=== PATIENT | female | born 1940 | race Caucasian/White ===

== ENCOUNTER 2019-03-14 07:47 | Observation (INO) ==
--- NOTE | 2019-03-14 07:59 | Emergency Department Note ---
Disposition Clinical Impression: TIA (transient ischemic attack) Disposition: Admitted As Inpatient Time of Disposition: 10:41 General Adult HPI - General Chief complaint: ED General Medical Stated complaint: confused, sweating Time Seen by Provider: 03/14/19 07:59 Source: patient, family Mode of arrival: private vehicle Limitations: no limitations Nursing Notes Reviewed: Yes Vital Signs Reviewed: Yes - History of Present Illness HPI Narrative: 78-year-old white female presents emergency department with her daughter and granddaughter who helps with the history. Apparently this morning the patient woke up confused. Her daughter describes her as having a panic attack and sweating all over. According to her daughter she has had a stroke 3 months ago and she wakes up in the morning and she is usually dizzy. She was dizzy this morning and apparently was confused. She had this episode where she did not recognize people and really did not know where she was or what was going on for about 20 minutes. This has resolved and the patient is awake and acting appropriately at the present time. She denies any pain. She has no new weakness. She has residual left-sided upper extremity weakness from her stroke in November. She denies headache. She is oriented to person, place and situation, but not to the month or year. She appears to be back at her baseline. Pain Scale: 0 - Related Data Home Medications Medication Instructions Recorded Confirmed Docusate Sodium [Stool Softener] 100 mg PO DAILY PRN 12/23/18 03/14/19 Levothyroxine [Synthroid] 75 mcg PO 0630 12/23/18 03/14/19 Losartan [Cozaar] 25 mg PO DAILY 12/23/18 03/14/19 Metoprolol [Lopressor] 25 mg PO DAILY 12/23/18 03/14/19 Raloxifene [Evista] 60 mg PO DAILY 12/23/18 03/14/19 Aspirin 325 mg PO DAILY 03/14/19 03/14/19 Atorvastatin Calcium [Lipitor] 20 mg PO 20 03/14/19 03/14/19 Allergies Allergy/AdvReac Type Severity Reaction Status Date / Time No Known Allergies Allergy Verified 10/30/16 12:11 All systems ED: reviewed and negative except as stated. Constitutional: Denies: fever, chills, weakness, weight change Eyes: Denies: eye pain, eye discharge, vision change ENT ED: Denies: ear pain, throat pain, dental pain, hearing loss, epistaxis, congestion, dysphagia Cardiovascular: Denies: chest pain, palpitations, dyspnea on exertion, edema, syncope Respiratory: Denies: cough, dyspnea, wheezes, hemoptysis, stridor Gastrointestinal: Reports: as per HPI Genitourinary: Denies: dysuria, frequency, hematuria, discharge Musculoskeletal: Denies: back pain, neck pain, arthralgia, myalgia Integumentary: Denies: rash, abrasion, lesions Neurological: Reports: as per HPI, confusion, vertigo Psychiatric: Denies: anxiety, depression, suicidal thoughts, homicidal thoughts, auditory hallucinations, visual hallucinations Endocrine: Denies: fatigue Hematological/Lymphatic: Denies: easy bleeding, easy bruising Allergic/Immunologic: Denies: facial swelling, urticaria Past Medical History - Past Medical History Medical history: Reports: CVA, hyperlipidemia, hypertension, thyroid disease Psychiatric history: Reports: no psych history - Social History Smoking Status: Never smoker Smokeless Tobacco Status: No Alcohol use: Reports: none Drug use: Reports: none Physical Exam - General Limitations: no limitations General appearance: alert, in no apparent distress - Eye Eye exam: Present: normal appearance, PERRL, EOMI - ENT ENT exam: normal exam, normal oropharynx, mucous membranes moist - Neck Neck exam: Present: normal inspection, full ROM, trachea midline - Chest Chest inspection: Present: normal inspection, symmetric chest wall rise - Respiratory Respiratory exam: Present: normal lung sounds bilaterally - Cardiovascular Cardiovascular exam: Present: regular rate, normal rhythm, normal heart sounds - Abdominal Exam Abdominal exam: Present: soft, Non-Tender. Absent: tenderness, distention, guarding, rebound, rigidity, organomegaly, mass, pulsatile mass - Extremities Exam Extremities exam: Present: normal inspection, normal capillary refill. Absent: tenderness - Back Exam Back exam: Present: normal inspection, full ROM. Absent: tenderness - Neurological Exam Neurological exam: Present: alert, CN II-XII intact, other (No new motor deficit. Her left upper extremity is unchanged.) - Expanded Neurological Exam Patient oriented to: Present: person, place. Absent: time Speech: Present: fluid speech Cranial nerves: EOM function (II, III, IV, ): Normal, facial sensation (V): Normal, facial palsy (VII): Normal, spinal accessory function (XI): Normal Cerebellar function: finger to nose: Abnormal Left, Normal, heel to brownlee: Normal Motor strength - LUE: 0/5 Motor strength - RUE: 5/5 Motor strength - LLE: 3/5 Motor strength - RLE: 3/5 - Psychiatric Psychiatric exam: Present: normal affect, normal mood - Skin Skin exam: Present: warm, dry, intact, normal color Course Course Narrative: Due to patient's episode this morning and concern for TIA and we will admit patient for further evaluation. Patient will also have a physical therapy consult to assess for rehabilitation potential. Patient and family are agreeable with this plan. I spoke with Dr. Hoffman and she has accepted patient for admission. Vital Signs Temperature 98.2 F 03/14/19 07:50 Pulse Rate 75 03/14/19 07:50 Respiratory Rate 16 03/14/19 07:50 Blood Pressure 186/93 03/14/19 07:50 O2 Sat by Pulse Oximetry 97 03/14/19 07:50 Temperature 98.2 F 03/14/19 07:50 Pulse Rate 75 03/14/19 07:50 Respiratory Rate 16 03/14/19 07:50 Blood Pressure 186/93 03/14/19 07:50 O2 Sat by Pulse Oximetry 97 03/14/19 07:50 Oxygen Delivery Oxygen Delivery Room Air Medical Decision Making - Lab Data Lab results reviewed: Yes I reviewed the patient's lab results. Lab results narrative: Patient's labs revealed no acute abnormalities. Results discussed with patient and family. Result diagrams: 03/14/19 08:35 03/14/19 08:35 - Radiology Data Radiology results reviewed: Yes I reviewed the patient's radiology results. CT head/brain wo con IMPRESSION: No acute intracranial hemorrhage or mass effect. Right MCA territory encephalomalacia. D/ / Phan Zhang MD / Phan Zhang MD - EKG Data EKG #1 EKG results narrative: Twelve-lead EKG shows atrial fibrillation with a ventricular rate between 73 and 75, normal axis, no acute ST elevation or depression appreciated.
[2019-03-14 08:48] LABS: Basophils # 0.1 K/mcL (0.0-0.2); Basophils % 0.8 %; Eosinophils # 0.1 K/mcL (0.0-0.6); Eosinophils % 1.4 %; Hematocrit 43.1 % (35.3-44.9); Hemoglobin 13.7 g/dL (11.5-15.4); Immature Granulocytes % 0.5 % (0-4); Lymphocytes # 1.3 K/mcL (0.6-4.6); Lymphocytes % 15.2 %; Mean Corpuscular HGB Conc 31.8 g/dL (31.6-35.5); Mean Corpuscular Volume 94.5 fL (83.0-100.0); Monocytes # 0.6 K/mcL (0.0-1.3); Monocytes % 6.5 %; Neutrophils # 6.4 K/mcL (1.6-8.9); Platelet Count 212 K/mcL (140-400); Red Blood Count 4.56 M/mcL (3.82-4.97); Red Cell Distribution Width 13.4 % (11.5-14.5); Segmented Neutrophils % 75.6 %; White Blood Count 8.5 K/mcL (4.3-11.1)
[2019-03-14 08:49] LABS: Prothrombin Time 11.5 Seconds (9.4-12.1)
[2019-03-14 08:56] LABS: Alanine Aminotransferase 16 Units/L (7-52); Albumin 3.7 g/dL (3.5-5.7); Albumin/Globulin Ratio 1.5 (1.1-2.2); Alkaline Phosphatase 63 Units/L (34-104); Aspartate Amino Transferase 18 Units/L (13-39); BUN/Creatinine Ratio 16 (6-26); Bilirubin,Total 0.6 mg/dL (0.3-1.0); Blood Urea Nitrogen 11 mg/dL (8-23); Calcium 8.6 mg/dL (8.6-10.3); Carbon Dioxide 29 mEq/L (23-29); Chloride 102 mEq/L (98-107); Globulin 2.5 g/dL (2.4-3.5); Glucose 99 mg/dL (70-105); Osmolality,Calculated 279 (280-300); Potassium 4.2 mEq/L (3.5-5.1); Sodium 135 mEq/L (136-145); Total Protein 6.2 g/dL (6.4-8.9); eGFR For African Americans > 60 (> 60); eGFR For Non-African Americans > 60 (> 60)
[2019-03-14 09:00] LABS: Troponin I < 0.03 ng/mL (< 0.04)
[2019-03-14 09:11] LABS: Bilirubin,Urine Negative (Negative); Blood,Urine Negative (Negative); Clarity,Urine Clear (Clear); Color,Urine Yellow (Yellow); Glucose,Urine (UA) Normal (Normal); Ketones,Urine Negative (Negative); Leukocyte Esterase,Urine Trace (Negative); Nitrite,Urine Negative (Negative); Protein,Urine Negative (Neg-Trace); Specific Gravity,Urine 1.015 (1.010-1.025); Urobilinogen,Urine Normal (Normal)
[2019-03-14 09:28] LABS: Bacteria,Urine Few per hpf (None-Few); Squamous Epithelial Cell,Urine Few per lpf (None-Few); WBC,Urine 0-3 per hpf (0-3)
[2019-03-14] MEDS ORDERED: Naloxone 0.4 MG/ML INJ IVP PRN (09:57)
[2019-03-14] MEDS: *HR* Enoxaparin 40 MG/0.4 ML SYRINGE SQ SCH (12:37)
--- NOTE | 2019-03-14 14:56 | Internal Med History&Physical ---
Date of Encounter: 03/14/19 Time of Encounter: 16:05 Assessment and Plan (1) CVA (cerebral vascular accident) Current visit: Yes Status: Acute Will order repeat Dopplers and echo. Her CT scan did not show any acute changes but she does have significant changes from her old CVA. Will consult PT OT and speech therapy. On an adult aspirin. Family already had discussions at [facility] [place] that she was not a candidate for carotid endarterectomy she was 100% occluded their and a critical stenosis on the left as well. I agree that she is not a surgical candidate at this point a surety has hemiplegia 100% stenosis Qualifiers: CVA mechanism: occlusion Precerebral and cerebral artery: middle cerebral artery Laterality of affected vessel: right Qualified Code(s): I63.511 - Cerebral infarction due to unspecified occlusion or stenosis of right middle cerebral artery (2) Left hemiplegia Current visit: Yes Status: Acute Unfelt PT OT. She would likely benefit from some ECF rehabilitation as she has been improving at home but it is been a slow process this hopefully would help her get better. vice president of consulting services been consult said to evaluate her for placement so she can do some more slow-paced rehabilitation but that we have here. (3) HTN (hypertension) Current visit: Yes Status: Acute Continue her home medication Qualifiers: Hypertension type: essential hypertension Qualified Code(s): I10 - Essential (primary) hypertension (4) Hyperlipemia Current visit: Yes Status: Acute Continue oral medication Qualifiers: Hyperlipidemia type: mixed hyperlipidemia Qualified Code(s): E78.2 - Mixed hyperlipidemia (5) Acquired hypothyroidism Current visit: Yes Status: Acute Will continue oral medication (6) Age related osteoporosis Current visit: Yes Status: Acute Stop the Evista she can not sit upright so she is not a candidate for bisphosphonate Qualifiers: Presence of current pathological fracture: without current pathological fracture Qualified Code(s): M81.0 - Age-related osteoporosis without current pathological fracture (7) Vitamin D deficiency Current visit: Yes Status: Acute (8) TIA (transient ischemic attack) Current visit: Yes Status: Acute Will check Dopplers carotids put her on telemetry. She is very on an aspirin. She R he had 100% stenosis of the right carotid and a critical stenosis on the left. It appears that she has is on her Dopplers well (9) Monilia infection Current visit: Yes Status: Acute nystatin (10) Full code status Current visit: Yes Status: Acute Discussed with daughter she has POA that patient was prior on hospice and now they want her to be full code. Internal Medicine - H&P: HPI Chief complaint: weakness confusion Admitted From: Home History of present illness: Ms. Pulido is a 78 year old female With a history of right MCA CVA in November presents from home to the emergency room after she woke up this morning disoriented confused did not know where she was. She had a very significant stroke with left hemiplegia. The family has been struggling to take care of her at home. She has been making progress and her leg is getting stronger she is better able to help get herself to the toilet but it is still a 2 person assist to get her to the bedside commode. This confusion is new for her. She has not had a fever she has not had a cough she has been wheezing or short of breath she had a fall 4 weeks ago. She did not have any injury with it. she is 24 hour care. in the eR she had a head CT that did not show any new changes. Lab work did not reveal any reason for the mental status changes she was back to baseline in the emergency room. She has been tearful whenever anyone talks about her current situation about CODE STATUS. Past Med Surg Social Fam HX - Past Medical History Medical history: CVA (right MCA with left hemiplegia), hyperlipidemia, hypertension, osteoporosis, thyroid disease (hypo) Additional medical history: mrsa Psychiatric history: no psych history - Past Surgical History Surgical History: carotid endarterectomy (right) - Social History Smoking Status: Never smoker Smokeless Tobacco Status: No Alcohol use: none Drug use: none - Family History Mother Living Status: Hx Family Cardiac Disorders: Yes Father Hx Family Cardiac Disorders: Yes Sister Hx Family Cardiac Disorders: Yes Hx Family Endocrine Disorder: Yes (dm2) Internal Medicine - H&P: Meds Docusate Sodium [Stool Softener] 100 mg PO DAILY PRN 12/23/18 [History] Levothyroxine [Synthroid] 75 mcg PO 0630 12/23/18 [History] Losartan [Cozaar] 25 mg PO DAILY 12/23/18 [History] Metoprolol [Lopressor] 25 mg PO DAILY 12/23/18 [History] Raloxifene [Evista] 60 mg PO DAILY 12/23/18 [History] Aspirin 325 mg PO DAILY 03/14/19 [History] Atorvastatin Calcium [Lipitor] 20 mg PO 20 03/14/19 [History] Allergy/AdvReac Type Severity Reaction Status Date / Time No Known Allergies Allergy Verified 10/30/16 12:11 All Systems PM: A 10-system review of systems was performed and is negative for pertinent findings except as documented above in the HPI. - Constitutional Constitutional: falls, no fever(s), no night sweats - EENT Eyes: change in vision (since cva) Nose, mouth and throat: no sore throat - Cardiovascular Cardiovascular ROS IM: lightheadedness, no chest pain, no dyspnea, no edema, no orthopnea, no palpitations, no syncope - Respiratory Respiratory: no cough, no wheezing - Gastrointestinal Gastrointestinal: constipation, no abdominal pain, no diarrhea, no hematochezia, no loose stools, no melena, no nausea, no vomiting - Genitourinary Genitourinary: urinary incontinence, no dysuria - Musculoskeletal Musculoskeletal ROS IM: limited range of motion, muscle cramps, numbness, stiffness (left arm) - Integumentary Integumentary IM: rash (groin) - Neurological Neurological ROS: abnormal gait (does not walk 2 person assist to get to toilet), focal weakness (left side) - Psychiatric Psychiatric: depression (when discussing code status or her health will get tearful), no change in appetite - Constitutional Vitals: Temp Pulse Resp BP Pulse Ox 97.6 F 80 16 164/71 96 03/14/19 10:54 03/14/19 10:54 03/14/19 10:54 03/14/19 10:54 03/14/19 10:54 General appearance: Present: pleasant, no acute distress. Absent: answers questions appropriately (daughter says not accurate, pt states she walks etc) - Head Head exam: Present: atraumatic, normocephalic - Eye Eye exam: Present: EOMI, PERRL. Absent: nystagmus - Neck Neck exam general surgery: Present: supple. Absent: lymphadenopathy - Expanded Neck Exam Neck exam: Present: carotid bruit (left) - Respiratory Respiratory exam: Present: CTAB - Cardiovascular Cardiovascular exam: Present: RRR, +S1, +S2. Absent: systolic murmur - GI/Abdominal GI/Abdominal exam: Present: normal bowel sounds, soft, no peritoneal signs. A bsent: distended, guarding, mass, rebound, tenderness - Extremities Exam Extremities exam: Present: normal capillary refill. Absent: pedal edema - Neurological Exam Neurological exam: Present: facial droop. Absent: CN II-XII intact, normal gait, strengths equal and symetr throughout (left hemiplegia spastic left arm) - Skin Skin exam: Present: dry, rash (erythema of the bilateral groin area). Absent: mottled Internal Med - H&P Results - Labs CBC & Chem 7: 03/14/19 08:35 03/14/19 08:35 Labs: Short CBC 03/14/19 Range/Units 08:35 WBC 8.5 (4.3-11.1) K/mcL Hgb 13.7 (11.5-15.4) g/dL Hct 43.1 (35.3-44.9) % Plt Count 212 (140-400) K/mcL Neutrophils # 6.4 (1.6-8.9) K/mcL BMP 03/14/19 08:35 Sodium 135 L Potassium 4.2 Chloride 102 Carbon Dioxide 29 BUN 11 Creatinine 0.67 Glucose 99 Calcium 8.6 Cardiac Enzymes 03/14/19 Range/Units 08:35 Troponin I < 0.03 (< 0.04) ng/mL Liver Function 03/14/19 Range/Units 08:35 Total Bilirubin 0.6 (0.3-1.0) mg/dL AST 18 (13-39) Units/L ALT 16 (7-52) Units/L Alkaline Phosphatase 63 (34-104) Units/L Albumin 3.7 (3.5-5.7) g/dL Urine 03/14/19 Range/Units 08:54 Urine Color Yellow (Yellow) Urine Clarity Clear (Clear) Urine pH 7.0 (5.0-8.0) pH Units Ur Specific [place] 1.015 (1.010-1.025) Urine Protein Negative (Neg-Trace) mg/dL Urine Glucose (UA) Normal (Normal) mg/dL - Impressions ITS Impressions Head CT 03/14/19 08:10 IMPRESSION: No acute intracranial hemorrhage or mass effect. Right MCA territory encephalomalacia. D/ / Phan Zhang MD / Phan Zhang MD Interpreting Provider: Phan Zhang MD
--- NOTE | 2019-03-14 19:52 | Electrocardiograph Report ---
[place] [id number] Test Date: 2019-03-14 Pat Name: Bebeto Pulido Department: EDG3 Room: 114 Gender: F Pipelines Manager: : [id number] Requested By: Mikel Pedro Order Number: [id number] Reading MD: Kayla Morris Measurements Intervals Martin Rate: 74 P: ME: QRS: -11 QRSD: 95 T: 43 QT: 428 QTc: 475 Interpretive Statements Sinus rhythm Borderline low voltage, extremity leads Baseline artifact Electronically Signed On 03-14-2019 19:50:46 EDT by Kayla Morris
[2019-03-14] MEDS: Nystatin Cream 15 GM TUBE TP SCH (21:17)
[2019-03-15 05:17] LABS: Basophils # 0.1 K/mcL (0.0-0.2); Basophils % 1.2 %; Eosinophils # 0.1 K/mcL (0.0-0.6); Eosinophils % 1.8 %; Hematocrit 39.1 % (35.3-44.9); Hemoglobin 12.7 g/dL (11.5-15.4); Immature Granulocytes % 0.3 % (0-4); Lymphocytes # 1.8 K/mcL (0.6-4.6); Lymphocytes % 29.4 %; Mean Corpuscular HGB Conc 32.5 g/dL (31.6-35.5); Mean Corpuscular Hemoglobin 30.7 pg (28.0-33.3); Mean Corpuscular Volume 94.4 fL (83.0-100.0); Mean Platelet Volume 10.3 fL (9.4-12.4); Monocytes # 0.5 K/mcL (0.0-1.3); Monocytes % 8.9 %; Neutrophils # 3.5 K/mcL (1.6-8.9); Platelet Count 181 K/mcL (140-400); Red Blood Count 4.14 M/mcL (3.82-4.97); Red Cell Distribution Width 13.6 % (11.5-14.5); Segmented Neutrophils % 58.4 %
[2019-03-15 05:31] LABS: BUN/Creatinine Ratio 24 (6-26); Blood Urea Nitrogen 16 mg/dL (8-23); Calcium 8.2 mg/dL (8.6-10.3); Carbon Dioxide 27 mEq/L (23-29); Chloride 104 mEq/L (98-107); Glucose 96 mg/dL (70-105); Osmolality,Calculated 281 (280-300); Potassium 4.6 mEq/L (3.5-5.1); Sodium 135 mEq/L (136-145); eGFR For African Americans > 60 (> 60); eGFR For Non-African Americans > 60 (> 60)
[2019-03-15] MEDS ORDERED: Aspirin 325 MG TABLET PO SCH (09:00)
[2019-03-15] MEDS: *HR* Enoxaparin 40 MG/0.4 ML SYRINGE SQ SCH (09:42)
[2019-03-15] MEDS: Nystatin Cream 15 GM TUBE TP SCH (09:43)
[2019-03-15 10:38] VITALS: BP 133/75
--- NOTE | 2019-03-15 13:30 | Discharge Summary ---
Date of Encounter: 03/15/19 Time of Encounter: 14:18 - Discharge Diagnosis (1) TIA (transient ischemic attack) Priority: Primary Status: Acute Comments: Rescinded from home for mental status changes she had confusion disorientation she did not know where she was she had a head CT did not show any new changes. She had an echo and she had carotid Doppler she did have critical stenosis of the right internal carotid and stenosis of the left as well. I discussed with Dr. Spencer dago has a left hemiplegia she is not a candidate for surgery "intervention. I also discussed this with daughter yesterday and she stated that [place] [employer] also concurred that she was not a surgical candidate or intervention. Candidate ready on an aspirin a day we will continue that. She is back at her baseline she does not have any new deficits. Genitourinary the urine culture did not grow anything. (2) CVA (cerebral vascular accident) Priority: Secondary Status: Acute Comments: Not have any new deficit she is back to her baseline we will send her home with home healthcare discussed sending her to a long term facility or an ECF for continued rehabilitation family elected to take her home with home health care. She was getting home health at home prior Qualifiers: CVA mechanism: occlusion Precerebral and cerebral artery: middle cerebral artery Laterality of affected vessel: right Qualified Code(s): I63.511 - Cerebral infarction due to unspecified occlusion or stenosis of right middle cerebral artery (3) Left hemiplegia Priority: Secondary Status: Acute Comments: Is no significant change to this deficit. Has gotten better since her CVA in November (4) HTN (hypertension) Priority: Secondary Status: Acute Comments: sTable no changes were made to her home medication Qualifiers: Hypertension type: essential hypertension Qualified Code(s): I10 - Essential (primary) hypertension (5) Hyperlipemia Priority: Secondary Status: Acute Comments: No changes were made to her home medication Qualifiers: Hyperlipidemia type: mixed hyperlipidemia Qualified Code(s): E78.2 - Mixed hyperlipidemia (6) Acquired hypothyroidism Priority: Secondary Status: Acute Comments: Continue her home medication (7) Age related osteoporosis Priority: Secondary Status: Acute Qualifiers: Presence of current pathological fracture: without current pathological fracture Qualified Code(s): M81.0 - Age-related osteoporosis without current pathological fracture (8) Vitamin D deficiency Priority: Secondary Status: Acute (9) Monilia infection Priority: Secondary Status: Acute Comments: We will send her home with a nystatin prescription. (10) Full code status Priority: Secondary Status: Acute Comments: Hospice prior daughter is power of industrial garage servicer daughter wants her to be full code patient wants to be done when ever daughter once done Hospital course: Ms. Pulido is a 78 year old female Who presented to the emergency room from home with the distal status changes she had an acute episode of confusion she was back at baseline when she was in the emergency room CT of the brain did not show any new changes she had carotid Dopplers that did not show any new changes she has a critical stenosis discussed with vascular she is on vascular candidate daughter had discussed with [facility] prior and she is not a candidate for intervention. We will continue her on her home aspirin continue on her Lipitor and manage her blood pressure. She had an echo done here as well. Patient was back at her baseline with her left hemiplegia so she was discharged home discussed at length placement she underwent evaluations by physical therapy occupational therapy and speech therapy they recommended ECF placement family was not agreeable to that she is also in her co-pay days so they elected to take her home with home health care. She had a urine culture did not grow anything so that was not the cause of the confusion. She did have a yeast infection nystatin was started in the hospital and sent to the pharmacy as well. Patient was on hospice prior to admission daughter discontinued hospice services wanted home health services they are frustrated with how often that they come out they would like to see someone come out and sent with her several hours a day explain that is not covered on home health. They will look into private pay options. She does have family that does also help a lot to0 Discharge discussed with: patient, family - Time Spent with Patient Total time spent providing and/or coordinating discharge services: - Discharge Medications Prescriptions: New Nystatin Cream [Mycostatin Cream] 1 appl TP BID 14 Days #60 gm Polyethylene Glycol 3350 [MiraLAX] 17 gm PO DAILY PRN powd.pack PRN Reason: Constipation Continued Aspirin 325 mg PO DAILY Atorvastatin Calcium [Lipitor] 20 mg PO 20 Metoprolol [Lopressor] 25 mg PO DAILY Losartan [Cozaar] 25 mg PO DAILY Levothyroxine [Synthroid] 75 mcg PO 0630 Docusate Sodium [Stool Softener] 100 mg PO DAILY PRN PRN Reason: Constipation Discontinued Raloxifene [Evista] 60 mg PO DAILY Home Medications: Docusate Sodium [Stool Softener] 100 mg PO DAILY PRN 12/23/18 [History] Levothyroxine [Synthroid] 75 mcg PO 0630 12/23/18 [History] Losartan [Cozaar] 25 mg PO DAILY 12/23/18 [History] Metoprolol [Lopressor] 25 mg PO DAILY 12/23/18 [History] Aspirin 325 mg PO DAILY 03/14/19 [History] Atorvastatin Calcium [Lipitor] 20 mg PO 20 03/14/19 [History] Nystatin Cream [Mycostatin Cream] 1 appl TP BID 14 Days #60 gm 03/15/19 [Rx] Polyethylene Glycol 3350 [MiraLAX] 17 gm PO DAILY PRN powd.pack 03/15/19 [Rx] Allergies/Adverse Reactions: Allergy/AdvReac Type Severity Reaction Status Date / Time No Known Allergies Allergy Verified 10/30/16 12:11 Date of admission: 03/14/19 10:04 Primary care physician: Haydee Freeman CNP Consults: 03/14/19 09:57 Consult to Occupational Therapy [CONS] Routine Comment: Evaluate, develop and implement POC Reason for Consult: h/o CVA with left side deficits. question rehab potentioa Does patient have active BEDREST order?: No Is patient medically & hemodynamically stable?: Yes Patient assessed for mobility or mobilized this visit?: Yes Consult to Physical Therapy [CONS] Routine Comment: Evaluate, develop and implement POC Reason for Consult: h/o CVA with left side deficits. question rehab potential Does patient have active BEDREST order?: No Is patient medically & hemodynamically stable?: Yes Patient assessed for mobility or mobilized this visit?: Yes Consult to Third Shift Lieutenant [CONS] Routine Reason for SW Consult: rehab 03/14/19 13:42 Consult to Speech Therapy [CONS] Routine Comment: Evaluate, develop and implement POC Reason for Consult: old cva 11/2018 dx of dysphagia Time Notified: 13:43 Call Completed: Yes - Constitutional Vitals: Temp Pulse Resp BP Pulse Ox 97.6 F 60 15 133/75 96 03/15/19 10:37 03/15/19 10:37 03/15/19 10:37 03/15/19 10:37 03/15/19 10:37 General appearance: Present: pleasant, no acute distress. Absent: answers questions appropriately (daughter says not accurate, pt states she walks etc) - Head Head exam: Present: atraumatic (facial droop) - Neck Neck exam general surgery: Present: supple, trachea midline. Absent: lymphadenopathy - Respiratory Respiratory exam: Present: CTAB - Cardiovascular Cardiovascular exam: Present: RRR, +S1, +S2. Absent: systolic murmur - GI/Abdominal GI/Abdominal exam: Present: normal bowel sounds, soft, no peritoneal signs. Absent: distended, guarding, rebound, tenderness - Extremities Exam Extremities exam: Present: warm. Absent: mottling, pedal edema - Neurological Exam Neurological exam: Present: facial droop. Absent: strengths equal and symetr throughout (hemiplegia of the left) - Skin Skin exam: Present: rash (groin), warm - Patient Status Disposition: Home Health Service Condition: Fair Overall status at discharge: patient is back to baseline - Discharge Instructions Follow Up With: Haydee Freeman CNP [Primary Care Provider] - 03/23/19 1:00 pm - Diet and Activity Activity: as per physical therapy, increase activity as tolerated Diet: low fat, low cholesterol
--- NOTE | 2019-03-15 14:22 | Physician Discharge Referral ---
Home Health/Hosp Referral Info Transfer to: Home Health Attending Provider: manuel - Diagnosis (1) TIA (transient ischemic attack) Priority: Primary Status: Acute (2) CVA (cerebral vascular accident) Priority: Secondary Status: Acute (3) Left hemiplegia Priority: Secondary Status: Acute (4) HTN (hypertension) Priority: Secondary Status: Acute (5) Hyperlipemia Priority: Secondary Status: Acute (6) Acquired hypothyroidism Priority: Secondary Status: Acute (7) Age related osteoporosis Priority: Secondary Status: Acute (8) Vitamin D deficiency Priority: Secondary Status: Acute (9) Monilia infection Priority: Secondary Status: Acute (10) Full code status Priority: Secondary Status: Acute - Respiratory Orders Smoking Cessation: Smoking cessation has been advised. For more information, call the [place] Tobacco Quit Line at 1-210-AISHNOW. - Transfer Medications Prescriptions: Nystatin Cream [Mycostatin Cream] 1 appl TP BID 14 Days #60 gm Home Medications: Docusate Sodium [Stool Softener] 100 mg PO DAILY PRN 12/23/18 [History] Levothyroxine [Synthroid] 75 mcg PO 0630 12/23/18 [History] Losartan [Cozaar] 25 mg PO DAILY 12/23/18 [History] Metoprolol [Lopressor] 25 mg PO DAILY 12/23/18 [History] Aspirin 325 mg PO DAILY 03/14/19 [History] Atorvastatin Calcium [Lipitor] 20 mg PO 20 03/14/19 [History] Nystatin Cream [Mycostatin Cream] 1 appl TP BID 14 Days #60 gm 03/15/19 [Rx] Polyethylene Glycol 3350 [MiraLAX] 17 gm PO DAILY PRN powd.pack 03/15/19 [Rx] Allergies/Adverse Reactions: Allergy/AdvReac Type Severity Reaction Status Date / Time No Known Allergies Allergy Verified 10/30/16 12:11 Certification: Further, I certify that my clinical findings support that this patient is homebound (i.e. absences from home require considerable and taxing effort and are for medical reasons or mandaeism services or infrequently or short duration when for other reasons) because: Homebound Reason: Patient requires assistance of a person or device to safely leave home (cva with left hemiplegia), Leaving home requires considerable and taxing effort due to condition Attestation: My signature below is to certify that this patient is under my care and that I, or nurse practitioner, or a physician's technician assistant working with me, has a [id number] encounter with this patient.
== END 2019-03-15 14:30 | disposition home health service (06) ==
LOC: INPGRE 07:47 → EMEROOGRE 07:47 → INPGRE 10:32
PROVIDERS: ADMIT Family Medicine; ATTEND Family Medicine